=== PATIENT | female | born 1955 | race Caucasian/White ===

== ENCOUNTER → 2021-06-03 | Outpatient (CLI) | payer OTHER ==
[2021-06-05 06:10] LABS: A/G RATIO 0.9 (1.2-2.2); ALKALINE PHOSPHATASE, S 120 IU/L (44-121); ALT (SGPT) 8 IU/L (0-32); AST (SGOT) 15 IU/L (0-40); BILIRUBIN, TOTAL <0.2 mg/dL (0.0-1.2); BUN 40 mg/dL (8-27); BUN/CREATININE RATIO 30 (12-28); CALCIUM, SERUM 8.6 mg/dL (8.7-10.3); CARBON DIOXIDE, TOTAL 21 mmol/L (20-29); CHLORIDE, SERUM 102 mmol/L (96-106); CREATININE, SERUM 1.34 mg/dL (0.57-1.00); EGFR IF AFRICN AM 48 (>59); EGFR IF NONAFRICN AM 42 (>59); GLUCOSE, SERUM 82 mg/dL (65-99); POTASSIUM, SERUM 5.2 mmol/L (3.5-5.2); PROTEIN, TOTAL, SERUM 7.4 g/dL (6.0-8.5); SODIUM, SERUM 140 mmol/L (134-144)
== END | disposition home or self-care (01) ==
LOC: EDSTATUS 12:52 → LAB RH 16:59
PROVIDERS: Internal Medicine
DX: U07.1 COVID-19 (principal)
CPT/HCPCS: 80053